=== PATIENT | male | born 2000 | race Caucasian/White ===

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

== ENCOUNTER → 2023-04-10 | Outpatient (CLI) | payer BC ==
[2023-04-10 17:33] LABS: ALT 18 U/L (10-49); AST 19 U/L (14-35); Blood Urea Nitrogen 14.4 mg/dL (9.0-27.0); C Reactive Protein <0.30 mg/dL (0.00-0.80); Calcium 9.6 mg/dL (8.7-10.3); Carbon Dioxide 26.6 mmol/L (21.6-31.8); Chloride 102 mmol/L (96-109); Creatine Kinase 122 U/L (35-257); Glucose 85 mg/dL (70-110); Potassium 4.4 mmol/L (3.5-5.5); Rheumatoid Factor, Qnt <15 IU/mL (0-15); Sodium 140 mmol/L (135-145); T4, Free (Free Thyroxine) 1.17 ng/dL (0.83-1.43); Uric Acid 4.7 mg/dL (3.7-8.7)
[2023-04-10 18:02] LABS: Basophils # (A) 0.03 X 10*3/uL (0.00-0.10); Basophils % (A) 0.7 %; Eosinophils % (A) 2.4 %; HCT 46.2 % (39.6-50.0); HGB 15.8 d/dL (13.0-17.0); Lymphocytes # (A) 1.25 X 10*3/uL (0.90-5.00); Lymphocytes % (A) 29.8 %; MCH 30.7 pg (27.0-32.0); MCHC 34.2 d/dL (32.0-37.0); MCV 89.9 FL (80.0-97.0); Mean Platelet Volume 9.8 FL (9.5-12.2); Monocytes # (A) 0.38 X 10*3/uL (0.20-1.00); Monocytes % (A) 9.1 %; NRBC Per 100 WBC 0 X 10*3/uL (0.00-0.01); Neutrophils # (A) 2.42 X 10*3/uL (1.80-7.70); Neutrophils % (A) 57.8 %; Platelet Count 282 X 10*3/uL (140-440); RBC 5.14 X 10*6/uL (4.40-5.60); RDW 11.9 % (11.5-14.5); WBC 4.19 X 10*3/uL (4.50-10.00)
[2023-04-10 18:34] LABS: Erythrocyte Sedimentation Rate 2 mm/Hr (0-15)
[2023-04-10 21:07] LABS: Cyclic Citrull Pep IgG Unit <1.5 U/mL (<=3.9); Cyclic Citrullinated Pep IgG Negative
[2023-04-11 12:29] LABS: HLA B27 NEGATIVE
[2023-04-13 11:00] LABS: Angiotensin-1 Converting Enz. 22 U/L (8-52)
== END | disposition home or self-care (01) ==
LOC: LABWHC1 10:17
PROVIDERS: ATTEND Orthopaedic Surgery
DX: M25.532 Pain in left wrist (principal); M25.531 Pain in right wrist; M25.831 Other specified joint disorders, right wrist; M25.832 Other specified joint disorders, left wrist
CPT/HCPCS: 36415; 80048; 82164; 82306; 82550; 83520; 84439; 84443; 84450; 84460; 84550; 85025; 85652; 86038; 86140; 86200; 86431; 86812

== ENCOUNTER 2023-08-13 01:33 | Observation (INO) | payer BC ==
--- NOTE | 2023-08-13 01:54 | ED ---
General Adult HPI - General Chief complaint: Abdominal Pain Stated complaint: abd pain back pain Time Seen by Provider: 08/13/23 01:40 Source: patient Mode of arrival: ambulatory Limitations: no limitations - History of Present Illness Initial comments: Dictation was produced using [employer] dictation software. please excuse any grammatical, word or spelling errors. Chief Complaint: 22-year-old male presents with right abdominal pain History of Present Illness: Patient 22-year-old male presents with 1 to 2 days of right-sided abdominal pain. Patient states he woke up in the morning felt fine yesterday. Couple hours later he started to have some right-sided abdominal pain. States that the pain is kind of eased up. Locates the pain to his almost right flank area. No nausea vomiting. He thought that perhaps this was secondary to constipation however he had a bowel movement and his symptoms did not improve. He was try to go to bed but his symptoms kept him up so he decided come to the ER. No fever, chills or night sweats. The ROS documented in this emergency department record has been reviewed and confirmed by me. Those systems with pertinent positive or negative responses have been documented in the HPI. All other systems are other negative and/or noncontributory. - Related Data Allergies Allergy/AdvReac Type Severity Reaction Status Date / Time No Known Allergies Allergy Verified 08/13/23 01:35 Review of Systems ROS Statement: Those systems with pertinent positive or pertinent negative responses have been documented in the HPI. ROS Other: All systems not noted in ROS Statement are negative. Past Medical History Past Medical History: No Reported History History of Any Multi-Drug Resistant Organisms: None Reported Past Surgical History: No Surgical Hx Reported Past Psychological History: No Psychological Hx Reported Smoking Status: Never smoker Past Alcohol Use History: None Reported Past Drug Use History: None Reported General Exam - General Exam Comments Initial Comments: PHYSICAL EXAM: General Impression: Alert and oriented x3, not in acute distress HEENT: Normocephalic atraumatic, extra-ocular movements intact, pupils equal and reactive to light bilaterally, mucous membranes moist. Cardiovascular: Heart regular rate and rhythm Chest: Able to complete full sentences, no retractions, no tachypnea Abdomen: abdomen soft, mild palpatory tenderness to the right abdomen just above the ASIS, non-distended, no organomegaly Musculoskeletal: Pulses present and equal in all extremities, no peripheral edema Motor: no focal deficits noted Neurological: CN II-XII grossly intact, no focal motor or sensory deficits noted Skin: Intact with no visualized rashes Psych: Normal affect and mood Limitations: no limitations Course Vital Signs 08/13/23 08/13/23 01:35 02:55 Temperature 97.8 F Pulse Rate 75 80 Respiratory 19 18 Rate Blood Pressure 137/84 132/78 O2 Sat by Pulse 99 98 Oximetry Medical Decision Making - Medical Decision Making Was pt. sent in by a medical professional or institution (, PA, CHOCOLATE PRODUCTION MACHINE OPERATOR, urgent care, hospital, or intermediate...) When possible be specific @ -No Did you speak to anyone other than the patient for history (EMS, parent, family, police, friend...)? What history was obtained from this source @ -No Did you review nursing and triage notes (agree or disagree)? Why? @ -I reviewed and agree with nursing and triage notes Were old charts reviewed (outside hosp., previous admission, EMS record, old EKG, old radiological studies, urgent care reports/EKG's, intermediate records)? Report findings @ -No old charts were reviewed Differential Diagnosis (chest pain, altered mental status, abdominal pain women, abdominal pain men, vaginal bleeding, musculoskeletal, weakness, fever, dyspnea, syncope, headache, dizziness, GI bleed, back pain, seizure, CVA, palpatations, mental health)? @ -Differential Abdominal Pain Men: Appendicitis, cholecystitis, diverticulosis, ischemic bowel, pancreatitis, hepatitis, UTI, gastroenteritis, AAA, incarcerated hernia, bowel obstruction, constipation, inflammatory bowel, hepatitis, peptic ulcer disease, splenic infarction, perforated viscus, testicular torsion, this is not meant to be an all-inclusive list EKG interpreted by me (3pts min.). @ -None done X-rays interpreted by me (1pt min.). @ -None done CT interpreted by me (1pt min.). @ -CT shows acute appendicitis U/S interpreted by me (1pt. min.). @ -None done What testing was considered but not performed or refused? (CT, X-rays, U/S, labs)? Why? @ -None What meds were considered but not given or refused? Why? @ -None Did you discuss the management of the patient with other professionals (professionals i.e. , PA, CHOCOLATE PRODUCTION MACHINE OPERATOR, lab, RT, psych nurse, social work lecturer, full time paramedic, teacher, biosecurity officer, case folder)? Give summary @ -Case discussed with Dr. Gabriel for admission Was smoking cessation discussed for >3mins.? @ -No Was critical care preformed (if so, how long)? @ -No Were there social determinants of health that impacted care today? How? (Homelessness, low income, unemployed, alcoholism, drug addiction, transpor tation, low edu. Level, literacy, decrease access to med. care, long term, rehab)? @ -No Was there de-escalation of care discussed even if they declined (Discuss DNR or withdrawal of care, Hospice)? DNR status @ -No What co-morbidities impacted this encounter? (DM, HTN, Smoking, COPD, CAD, Cancer, CVA, ARF, Chemo, Hep., AIDS, mental health diagnosis, sleep apnea, morbid obesity)? @ -None Was patient admitted / discharged? Hospital course, mention meds given and route, prescriptions, significant lab abnormalities, going to OR and other pertinent info. @ -22-year-old male presents to the ER for abdominal pain. Vital signs stable. Slight white count of 11.2. X-ray is unremarkable but CT shows acute appendicitis. Patient started on Zosyn will be admitted to general surgery with plans for surgery today. Undiagnosed new problem with uncertain prognosis? @ -No Drug Therapy requiring intensive monitoring for toxicity (Heparin, Nitro, Insulin, Cardizem)? @ -No Were any procedures done? @ -No Diagnosis/symptom? Acute, or Chronic, or Acute on Chronic? Uncomplicated (without systemic symptoms) or Complicated (systemic symptoms)? @ -Acute appendicitis Side effects of treatment? @ -No Exacerbation, Progression, or Severe Exacerbation? @ -No Poses a threat to life or bodily function? How? (Chest pain, [place], [place], pneumonia, PE, COPD, DKA, ARF, appy, cholecystitis, CVA, Diverticulitis, Homicidal, Suicidal, threat to staff... and all critical care pts) @ -yes - Lab Data Result diagrams: 08/13/23 01:57 08/13/23 01:57 Lab Results 08/13/23 08/13/23 08/13/23 Range/Units 01:57 01:57 01:57 WBC 11.2 H (4.0-11.0) k/uL RBC 4.85 (4.30-5.90) m/uL Hgb 15.2 (13.0-17.5) gm/dL Hct 44.4 (39.0-53.0) % MCV 91.5 (80.0-100.0) fL MCH 31.4 (25.0-35.0) pg MCHC 34.3 (31.0-37.0) g/dL RDW 12.2 (11.5-15.5) % Plt Count 252 (150-450) k/uL MPV 8.0 Neutrophils % 72 % Lymphocytes % 19 % Monocytes % 7 % Eosinophils % 1 % Basophils % 0 % Neutrophils # 8.0 H (1.3-7.7) k/uL Lymphocytes # 2.1 (1.0-4.8) k/uL Monocytes # 0.8 (0-1.0) k/uL Eosinophils # 0.1 (0-0.7) k/uL Basophils # 0.1 (0-0.2) k/uL Sodium 139 (137-145) mmol/L Potassium 3.7 (3.5-5.1) mmol/L Chloride 104 (98-107) mmol/L Carbon Dioxide 26 (22-30) mmol/L Anion Gap 9 mmol/L BUN 16 (9-20) mg/dL Creatinine 0.83 (0.66-1.25) mg/dL Est GFR (CKD-EPI)AfAm >90 (>60 ml/min/1.73 sqM) Est GFR (CKD-EPI)NonAf >90 (>60 ml/min/1.73 sqM) Glucose 94 (74-99) mg/dL Calcium 9.2 (8.4-10.2) mg/dL Total Bilirubin 0.9 (0.2-1.3) mg/dL AST 41 (17-59) U/L ALT 21 (4-49) U/L Alkaline Phosphatase 90 (38-126) U/L Total Protein 7.3 (6.3-8.2) g/dL Albumin 4.6 (3.5-5.0) g/dL Urine Color Colorless Urine Appearance Clear (Clear) Urine pH 6.5 (5.0-8.0) Ur Specific [place] 1.013 (1.001-1.035) Urine Protein Negative (Negative) Urine Glucose (UA) Negative (Negative) Urine Ketones Negative (Negative) Urine Blood Negative (Negative) Urine Nitrite Negative (Negative) Urine Bilirubin Negative (Negative) Urine Urobilinogen <2.0 (<2.0) mg/dL Ur Leukocyte Esterase Negative (Negative) Disposition Clinical Impression: Acute appendicitis Disposition: ADMITTED IP TO THIS HOSP Condition: Fair Referrals: Tye Oropeza MD [Primary Care Provider] - 1-2 days Decision Time: 04:26
[2023-08-13 02:33] LABS: Basophils # (A) 0.1 k/uL (0-0.2); Basophils % (A) 0 %; Eosinophils # (A) 0.1 k/uL (0-0.7); Eosinophils % (A) 1 %; HCT 44.4 % (39.0-53.0); HGB 15.2 gm/dL (13.0-17.5); Lymphocytes # (A) 2.1 k/uL (1.0-4.8); Lymphocytes % (A) 19 %; MCH 31.4 pg (25.0-35.0); MCHC 34.3 g/dL (31.0-37.0); MCV 91.5 fL (80.0-100.0); Monocytes # (A) 0.8 k/uL (0-1.0); Monocytes % (A) 7 %; Neutrophils % (A) 72 %; Platelet Count 252 k/uL (150-450); RBC 4.85 m/uL (4.30-5.90); RDW 12.2 % (11.5-15.5); WBC 11.2 k/uL (4.0-11.0)
[2023-08-13 02:35] LABS: Appearance,Urine Clear (Clear); Bilirubin,Urine Negative (Negative); Blood,Urine Negative (Negative); Color,Urine Colorless; Glucose,Urine (UA) Negative (Negative); Ketones,Urine Negative (Negative); Leukocyte Esterase,Urine Negative (Negative); Nitrite,Urine Negative (Negative); PH, Urine 6.5 (5.0-8.0); Protein,Urine Negative (Negative); Specific Gravity,Urine 1.013 (1.001-1.035); Urobilinogen,Urine <2.0 mg/dL (<2.0)
--- NOTE | 2023-08-13 03:13 | XR ---
EXAM: XR Abdomen, 1 View CLINICAL HISTORY: XR Reason: right abdominal pain TECHNIQUE: Frontal supine view of the abdomen/pelvis. COMPARISON: No relevant prior studies available. FINDINGS: Gastrointestinal tract: Large amount of stool in the cecum and right colon measuring up to 6.4 cm in diameter which is upper limits of normal suggesting mild constipation. No other dilated bowel loops are abnormal gas collections are seen. Bones/joints: Unremarkable. No acute fracture. IMPRESSION: Large amount of stool in the cecum and right colon measuring up to 6.4 cm in diameter which is upper limits of normal suggesting mild constipation. No other dilated bowel loops are abnormal gas collections are seen.
[2023-08-13 03:16] LABS: ALT 21 U/L (4-49); AST 41 U/L (17-59); African American GFR (CKD) >90 (>60 ml/min/1.73 sqM); Albumin 4.6 g/dL (3.5-5.0); Alkaline Phosphatase 90 U/L (38-126); Anion Gap 9 mmol/L; Blood Urea Nitrogen 16 mg/dL (9-20); Calcium 9.2 mg/dL (8.4-10.2); Carbon Dioxide 26 mmol/L (22-30); Chloride 104 mmol/L (98-107); Glucose 94 mg/dL (74-99); Non-African American GFR(CKD) >90 (>60 ml/min/1.73 sqM); Potassium 3.7 mmol/L (3.5-5.1); Sodium 139 mmol/L (137-145); Total Bilirubin 0.9 mg/dL (0.2-1.3); Total Protein 7.3 g/dL (6.3-8.2)
--- NOTE | 2023-08-13 04:03 | CT ---
EXAM: CT Abdomen and Pelvis With Intravenous Contrast CLINICAL HISTORY: CT Reason: rlq pain TECHNIQUE: Axial computed tomography images of the abdomen and pelvis with intravenous contrast. CTDI is 19.7 mGy and DLP is 925.1 mGy-cm. This CT exam was performed using one or more of the following dose reduction techniques: automated exposure control, adjustment of the mA and/or kV according to patient size, and/or use of iterative reconstruction technique. COMPARISON: Supine abdomen from August 13, 2023 FINDINGS: Lung bases: Unremarkable. No mass. No consolidation. ABDOMEN: Liver: Unremarkable. No mass. Gallbladder and bile ducts: Unremarkable. No calcified stones. No ductal dilation. Pancreas: Unremarkable. No mass. No ductal dilation. Spleen: Unremarkable. No splenomegaly. Adrenals: Unremarkable. No mass. Kidneys and ureters: Delayed images show normal renal contrast excretion bilaterally. No hydronephrosis. Stomach and bowel: Mild diverticulosis of the sigmoid colon. No evidence of acute diverticulitis. No obstruction. PELVIS: Appendix: The appendix is retrocecal and borderline dilated measuring 9-10 mm. The wall is thickened with a small amount of surrounding inflammation and trace amount of fluid characteristic of acute appendicitis. No signs of rupture or abscess. Bladder: Unremarkable. No mass. Reproductive: Unremarkable as visualized. ABDOMEN and PELVIS: Intraperitoneal space: Trace amount of free fluid in the pelvis. No free air. Bones/joints: Chronic pars defects at L4 bilaterally without spondylolisthesis. There are mild degenerative changes in the spine. No acute fracture. No dislocation. Soft tissues: Unremarkable. Vasculature: Unremarkable. No abdominal aortic aneurysm. Lymph nodes: Unremarkable. No enlarged lymph nodes. IMPRESSION: The appendix is retrocecal and borderline dilated measuring 9-10 mm. The wall is thickened with a small amount of surrounding inflammation and trace amount of fluid characteristic of acute appendicitis. No signs of rupture or abscess. <MYCVCSECTION> Communications: 08/13/23 04:17 Call Doctor Regarding Appendicitis, called Dr. Hickman on 04:16 (-05:00)
[2023-08-13] MEDS ORDERED: NALOXONE 0.4 MG/ML 1 ML VIAL IV PRN (04:13)
[2023-08-13] MEDS ORDERED: ONDANSETRON 4 MG/2 ML VIAL IVP PRN (04:13)
[2023-08-13] MEDS: MORPHINE SULFATE 4 MG/ML SYRINGE IV PRN (04:32)
[2023-08-13] MEDS: SODIUM CHLORIDE 0.9% 1,000 ML IV SCH (04:36)
[2023-08-13] MEDS: PIPERACILLIN-TAZOBACTAM 3.375 GM in SODIUM CHLORIDE 0.9% 100 ML IVPB SCH (05:21)
--- NOTE | 2023-08-13 12:48 | P.GSHP ---
History of Present Illness H&P Date: 08/13/23 CHIEF COMPLAINT: Abdominal pain HISTORY OF PRESENT ILLNESS: This is a 22-year-old male who presented to the hospital with complaints of right lower quadrant abdominal pain that you started yesterday morning. The pain will move to lower mid abdomen. He has had nausea. No vomiting. Denies any fever chills or sweats. Denies any prior abdominal surgeries. He has been having flatus. CT scan had reported a borderline dilated appendix that was thickened and inflamed and evidence of acute append icitis. Patient started on IV antibiotics and scheduled for laparoscopic appendectomy today. PAST MEDICAL HISTORY: See list. PAST SURGICAL HISTORY: See list. MEDICATIONS: See list. ALLERGIES: See list. SOCIAL HISTORY: No illicit drug use. REVIEW OF SYSTEMS: CONSTITUTIONAL: Denies fever or chills. HEENT: Denies blurred vision, vision changes, or eye pain. Denies hemoptysis ENDOCRINE: Denies heat or cold intolerance. CARDIOVASCULAR: Denies chest pain or pressure. RESPIRATORY: No shortness of breath. GASTROINTESTINAL: Please refer to HPI otherwise unremarkable. NEURO: Denies history of seizures. PSYCH: No depression or suicidal ideation HEMATOLOGIC: Denies bleeding disorders. LYMPHATIC: The patient denies any lumps and bumps around the neck. GENITOURINARY: Denies any blood in urine or increased urinary frequency. MUSCULOSKELETAL: Denies myalgias. Denies joint swelling. Denies decreased range of motion beyond patients baseline. SKIN: Denies pruitis. Denies rash. PHYSICAL EXAM: VITAL SIGNS: Reviewed GENERAL: Well-developed in no acute distress. HEENT: No sclera icterus. Extraocular movements grossly intact. Moist buccal mucosa. Head is atraumatic, normocephalic. Hears conversational speech. No nasal drainage. NECK: Supple without lymphadenopathy. CHEST: Non-labored respirations and equal bilateral excursions. CARDIOVASCULAR: Palpable 2+ radial pulses. ABDOMEN: Soft. Nondistended. Tenderness right lower quadrant MUSCULOSKELETAL: No clubbing or cyanosis. NEUROLOGIC: No focal or lateralizing signs. Cranial nerves II through XII grossly intact. PSYCH: Appropriate affect. Alert and oriented to person, place and time. SKIN: Well perfused. Good skin turgor. LABORATORY DATA: WBC 11.2 Hgb 15.2 platelets 252 Sodium 139 potassium 3.7 creatinine 0.83 Urinalysis unremarkable IMAGING: CT scan abdomen pelvis the appendix is retrocecal and borderline dilated measuring 9 to 10 mm. The wall is thickened with a small amount of surrounding inflammation and trace amount of fluid characteristic of acute appendicitis. No signs of rupture or abscess X-ray large amount of stool in the cecum and right colon measuring up to 6.4 cm in diameter suggesting mild constipation. ASSESSMENT: 1. Acute appendicitis PLAN: -Patient scheduled for Robotic appendectomy today with Dr. Spencer -Keep patient n.p.o. -Continue IV antibiotics -Continue IV fluids -Continue pain management Physician Autocad Designer note has been reviewed by physician. Signing provider agrees with the documented findings, assessment, and plan of care. Past Medical History Past Medical History: No Reported History History of Any Multi-Drug Resistant Organisms: None Reported Past Surgical History: No Surgical Hx Reported Past Psychological History: No Psychological Hx Reported Smoking Status: Never smoker Past Alcohol Use History: None Reported Past Drug Use History: None Reported Medications and Allergies Home Medications Medication Instructions Recorded Confirmed Type No Known Home Medications 08/13/23 08/13/23 History Allergies Allergy/AdvReac Type Severity Reaction Status Date / Time No Known Allergies Allergy Verified 08/13/23 07:07 Surgical - Exam Vital Signs Temp Pulse Resp BP Pulse Ox 97.8 F 75 19 137/84 99 08/13/23 01:35 08/13/23 01:35 08/13/23 01:35 08/13/23 01:35 08/13/23 01:35 Results - Labs 08/13/23 01:57 08/13/23 01:57 Abnormal Lab Results - Last 24 Hours (Table) 08/13/23 Range/Units 01:57 WBC 11.2 H (4.0-11.0) k/uL Neutrophils # 8.0 H (1.3-7.7) k/uL Diabetes panel 08/13/23 Range/Units 01:57 Sodium 139 (137-145) mmol/L Potassium 3.7 (3.5-5.1) mmol/L Chloride 104 (98-107) mmol/L Carbon Dioxide 26 (22-30) mmol/L BUN 16 (9-20) mg/dL Creatinine 0.83 (0.66-1.25) mg/dL Glucose 94 (74-99) mg/dL Calcium 9.2 (8.4-10.2) mg/dL AST 41 (17-59) U/L ALT 21 (4-49) U/L Alkaline Phosphatase 90 (38-126) U/L Total Protein 7.3 (6.3-8.2) g/dL Albumin 4.6 (3.5-5.0) g/dL Calcium panel 08/13/23 Range/Units 01:57 Calcium 9.2 (8.4-10.2) mg/dL Albumin 4.6 (3.5-5.0) g/dL Pituitary panel 08/13/23 Range/Units 01:57 Sodium 139 (137-145) mmol/L Potassium 3.7 (3.5-5.1) mmol/L Chloride 104 (98-107) mmol/L Carbon Dioxide 26 (22-30) mmol/L BUN 16 (9-20) mg/dL Creatinine 0.83 (0.66-1.25) mg/dL Glucose 94 (74-99) mg/dL Calcium 9.2 (8.4-10.2) mg/dL Adrenal panel 08/13/23 Range/Units 01:57 Sodium 139 (137-145) mmol/L Potassium 3.7 (3.5-5.1) mmol/L Chloride 104 (98-107) mmol/L Carbon Dioxide 26 (22-30) mmol/L BUN 16 (9-20) mg/dL Creatinine 0.83 (0.66-1.25) mg/dL Glucose 94 (74-99) mg/dL Calcium 9.2 (8.4-10.2) mg/dL Total Bilirubin 0.9 (0.2-1.3) mg/dL AST 41 (17-59) U/L ALT 21 (4-49) U/L Alkaline Phosphatase 90 (38-126) U/L Total Protein 7.3 (6.3-8.2) g/dL Albumin 4.6 (3.5-5.0) g/dL
[2023-08-13] MEDS: LACTATED RINGERS 1,000 ML IV ONE ×2 (16:53→18:54)
[2023-08-13] MEDS: ONDANSETRON 4 MG/2 ML VIAL IVP ONE ×2 (17:11→21:13)
[2023-08-13] MEDS: DEXAMETHASONE SOD PHOSPHATE 4 MG/ML 1 ML VIAL IVP ONE (17:11)
[2023-08-13] MEDS: HEPARIN SODIUM,PORCINE 5,000 UNIT/ML 1 ML VIAL SQ ONE (17:26)
[2023-08-13] MEDS ORDERED: SUGAMMADEX SODIUM 200 MG/2 ML SDV IV ONE (18:06)
[2023-08-13] MEDS ORDERED: MIDAZOLAM 2 MG/2 ML VIAL ONE (18:06)
[2023-08-13] MEDS ORDERED: SUCCINYLCHOLINE CHLORIDE 200 MG/10 ML VIAL IV ONE (18:06)
[2023-08-13] MEDS ORDERED: ROCURONIUM 10 MG/ML (5 ML VIAL) IV ONE (18:06)
[2023-08-13] MEDS ORDERED: KETOROLAC 30 MG/ML 1 ML VIAL ONE (18:06)
[2023-08-13] MEDS ORDERED: PROPOFOL 10 MG/ML 20 ML VIAL IV ONE (18:06)
[2023-08-13] MEDS ORDERED: fentaNYL (PF) 50 MCG/ML 2 ML AMP ONE (18:06)
[2023-08-13] MEDS: LIDOCAINE 2%-EPI 1:100,000 20 ML VIAL SQ ONE (18:28)
[2023-08-13] MEDS ORDERED: HYDROmorphone 1 MG/ML 1 ML SYRINGE IVP PRN (19:26)
[2023-08-13] MEDS ORDERED: HYDROcodone/APAP 5-325MG 1 EACH TAB PO PRN (19:26)
[2023-08-13 19:28] VITALS: RESP 16
--- NOTE | 2023-08-13 19:33 | P.OP ---
Date of Procedure: 08/13/23 Description of Procedure: SURGEON: ENZO CHO MD Preoperative Diagnosis: 1. Acute appendicitis Postoperative Diagnosis: 1. Acute appendicitis, retrocecal with periappendicitis Procedure(s) Performed: 1. Robotic-assisted daVinci Xi laparoscopic appendectomy Anesthesia: GETA, local Estimated Blood Loss (ml): 5 Pathology: other (appendix) Condition: stable Disposition: floor Operative Findings: 1. Acute appendicitis without rupture with periappendicitis, retrocecal 2. Terminal ileum unremarkable 3. Cecum unremarkable 4. No inguinal hernia INDICATIONS: The patient is a 22-year-old male who presents with acute appendicitis. Benefits and risks, including infection, open surgery, and bleeding for additional surgery was discussed at length. Informed consent was obtained. All questions of the patient and family were answered. DESCRIPTION: The patient was transferred to the operating room and placed in supine position. The patient had previously voided. The abdomen was then prepped and draped in standard sterile fashion as Ioban was placed along the abdomen to minimize any contamination of skin floor. After a timeout protocol was performed, attention was then brought to the left upper quadrant whereby a 0 degree 5 mm laparoscopic trocar entry was performed. The abdominal cavity was entered and insufflated to 12 mmHg pressure, which was tolerated well. Diagnostic laparoscopy demonstrated no injury to bowel, viscera or mesentery. Next a robotic 8-mm trocar was placed along the left lower quadrant, 10-cm lateral to the midline. A 12 mm port was placed along the left upper quadrant and another 8-mm port left lateral abdominal wall. Ports were placed 8 cm apart from each other including 15-20 cm away from the target anatomy of the right pelvis. The patient was then placed in Trendelenburg position, at least 14 down and right side up at least 7. The robotic da Rommel XI system was primed and docked from the left side of the patient. Using atraumatic graspers and vessel sealer, the robotic system was docked and primed as described. Instruments were interchanged by the administrative assistant receptionist including graspers, robotic stapler and vessel sealer. Next, attention was brought to identify the cecum. A systematic view within the abdominal cavity was started with the small bowel which was unremarkable. The base of the cecum was unremarkable. The appendix was retrocecal coursing towards right upper quadrant behind the ascending colon with additional dissection required. The body of the appendix was moderately dilated with moderate periappendicitis. No perforation was identified. The appendix was dissected free from its surrounding tissues. Blue 45 mm robotic staple loads were fired along the base of the appendix. The staple line was hemostatic. Hemostasis was checked prior to undocking the robot. The robot was undocked. I re-scrubbed into the case. The specimen was removed from the abdominal cavity with an Endo Catch bag through the 12 mm trocar at the left upper quadrant. All instruments and pneumoperitoneum were evacuated from the abdominal cavity. Local anesthetic was infiltrated to all wounds for postop analgesia. All incisions were also cleansed with diluted hydrogen peroxide. The incisions were closed with 4-0 Monocryl. Exofin glue was applied to the rest of the skin incisions. The patient had tolerated the procedure well. The patient was extubated successfully. The patient was transferred to the postanesthesia care unit in stable condition.
[2023-08-13] MEDS: DEXAMETHASONE SOD PHOSPHATE 4 MG/ML 1 ML VIAL IV ONE (21:12)
[2023-08-13] MEDS: LACTATED RINGERS 1,000 ML IV SCH (21:13)
[2023-08-13] MEDS: ACETAMINOPHEN IV (For NPO) 1,000 MG in EMPTY BAG 1 BAG IVPB ONE (21:26)
[2023-08-14] MEDS: KETOROLAC 15 MG/ML 1 ML VIAL IVP SCH (01:28)
[2023-08-14 06:19] VITALS: BP 106/62; PULSE 74; TEMP 97.8
[2023-08-14] MEDS ORDERED: HYDROmorphone 0.5 MG/0.5 ML SYRINGE IVP PRN (07:00)
--- NOTE | 2023-08-15 17:22 | P.DS ---
Providers Date of admission: 08/13/23 04:13 Expected date of discharge: 08/14/23 Attending physician: Emily Spencer Consults: 08/13/23 05:32 Consult Physician Routine Consulting Provider: [facility] Consult Reason/Comments: [facility] Do you want consulting provider notified?: Yes Primary care physician: Tye Oropeza [place] Course: Postoperative Diagnosis: 1. Acute appendicitis, retrocecal with periappendicitis INDICATIONS: The patient is a 22-year-old male who presents with acute appendicitis. He underwent appendectomy without complication. Prior to discharge, he was tolerating diet. Pain was controlled. Procedures: Procedure(s) Performed: 1. Robotic-assisted daVinci Xi laparoscopic appendectomy Anesthesia: GETA, local Estimated Blood Loss (ml): 5 Pathology: other (appendix) Condition: stable Disposition: floor Operative Findings: 1. Acute appendicitis without rupture with periappendicitis, retrocecal 2. Terminal ileum unremarkable 3. Cecum unremarkable 4. No inguinal hernia Patient Condition at Discharge: Good Plan - Discharge Summary Discharge Rx Participant: No New Discharge Prescriptions: New Simethicone [Gas-X] 125 mg PO AC-TID PRN #20 capsule PRN Reason: Pain Acetaminophen Tab [Tylenol Tab] 1,000 mg PO Q6HR PRN #30 tablet PRN Reason: Pain Ibuprofen [Motrin] 600 mg PO Q8HR PRN #30 tab PRN Reason: Pain Discharge Medication List Acetaminophen Tab [Tylenol Tab] 1,000 mg PO Q6HR PRN #30 tablet 08/13/23 [Rx] Ibuprofen [Motrin] 600 mg PO Q8HR PRN #30 tab 08/13/23 [Rx] Simethicone [Gas-X] 125 mg PO AC-TID PRN #20 capsule 08/13/23 [Rx] Follow up Appointment(s)/Referral(s): Emily Spencer MD [STAFF PHYSICIAN] - 08/18/23 (TELEPHONE) Tye Oropeza MD [Primary Care Provider] - 1-2 days Patient Instructions/Handouts: Laparoscopic Appendectomy (GEN) Activity/Diet/Wound Care/Special Instructions: TELEHEALTH - WILL CALL YOU BETWEEN 8 am to 8 pm No lifting over 10 pounds in 2 weeks until August 26October shower. No bath tub soaks for two weeks until August 26 Diet as tolerated. Use Tylenol, simethicone and ibuprofen or Aleve scheduled for the next 24-48 hours for best pain relief. Use ice along incisions for today to prevent swelling. Discharge Disposition: HOME SELF-CARE
== END 2023-08-14 06:45 | disposition home or self-care (01) ==
LOC: EC 01:33 → INTOOBSV 04:13 → 6NMEDSUR 04:13 → UNDODISIN 08-14 06:45
PROVIDERS: ADMIT Surgery Plastic and Reconstructive Surgery; ATTEND Surgery Plastic and Reconstructive Surgery
DX: K35.80 Unspecified acute appendicitis (principal)
CPT/HCPCS: 44970; S2900; 36415; 74018; 74177; 80053; 81003; 85025; 88304; 96361; 96365; 96366; 96367; 96375; 99285